=== PATIENT | female | born 1995 | race American Indian/Alaskan Native ===

== ENCOUNTER 2021-08-13 23:40 | Emergency (ER) | payer BC ==
[2021-08-13 23:50] VITALS: BP 123/73
--- NOTE | 2021-08-14 00:08 | Emergency Department Report ---
ED General Adult HPI - General Chief complaint: Urogenital-Female Stated complaint: POSS MISCARRIGE Time Seen by Provider: 08/13/21 23:54 Source: patient Mode of arrival: Ambulatory Limitations: No Limitations - History of Present Illness Initial comments: 25-year-old female patient presents to the emergency department with complaints of progressively worsening lower abdominal pain and vaginal bleeding. Patient states she was seen in the emergency department for the same symptoms 2 days ago. Serum hCG was measured and transvaginal ultrasound confirmed intrauterine , 7 weeks gestation, normal heart tones she was discharged home to follow-up with wholesale account manager this week.. Tonight, her pain and bleeding worsened, prompting her to return to the emergency department for repeat assessment. This is patient's first . Denies fever, chills, dizziness, lightheadedness, syncope. Denies all other complaints at this time. - Related Data Previous Rx's Medication Instructions Recorded Last Taken Type Ondansetron [Zofran Odt] 4 mg PO Q4H #20 tab.rapdis 08/14/21 Unknown Rx oxyCODONE /ACETAMINOPHEN [Percocet 1 tab PO Q4HR #15 tab 08/14/21 Unknown Rx 5/325] Allergies Allergy/AdvReac Type Severity Reaction Status Date / Time No Known Allergies Allergy Verified 08/12/21 12:24 ED Review of Systems ROS: Stated complaint: POSS MISCARRIGE Other details as noted in HPI Other: GENERAL: Negative for fever, chills, weight change, anorexia, fatigue. ENT: Negative for ear pain, difficulty hearing, sore throat, nasal congestion, epistaxis. CARDIOVASCULAR: Negative for chest pain, palpitations, lower extremity swelling. PULMONARY: Negative for cough, dyspnea, wheezing, orthopnea, cyanosis. GASTROINTESTINAL: Positive for abdominal pain. GENITOURINARY: Positive for vaginal bleeding. MUSCULOSKELETAL: Negative for joint pain, joint swelling, myalgias, back pain, neck pain. NEUROLOGICAL: Negative for headache, seizure, syncope, paresthesias, weakness. INTEGUMENTARY: Negative for erythema, rash, diaphoresis, laceration, ecchymosis. HEMATOLOGICAL: Negative for hemoptysis, hematemesis, hematochezia, hematuria. PSYCHIATRIC: Negative for hallucinations, suicidal ideation, homicidal ideation, anxiety, depression. ED Past Medical Hx - Past Medical History Previous Medical History?: No - Surgical History Past Surgical History?: No - Social History Smoking Status: Never Smoker Substance Use Type: None - Medications Home Medications: Home Medications Medication Instructions Recorded Confirmed Last Taken Type Ondansetron [Zofran Odt] 4 mg PO Q4H #20 tab.rapdis 08/14/21 Unknown Rx oxyCODONE /ACETAMINOPHEN [Percocet 1 tab PO Q4HR #15 tab 08/14/21 Unknown Rx 5/325] ED Physical Exam - General Limitations: No Limitations - Other Other exam information: General: Awake and alert. No acute distress. Head: Atraumatic, normocephalic. Eyes: EOMI. Pupils are equal and round. Normal sclera and conjunctiva. ENT: Oral mucosa is moist. Normal pharyngeal exam. Neck: Supple. No lymphadenopathy. Pulmonary: No respiratory distress. Clear to auscultation bilaterally. Cardiac: Regular rate and rhythm. Pulses are palpable and equal bilaterally. No lower extremity cyanosis or edema. Pelvic: Female warehouse sorter (BROOK Dexter) present. Normal external inspection. Cervical os is closed. Multiple blood clots removed manually and with forceps. Skin: Warm and dry. No rashes. Abdomen: Soft, non-tender, non-protuberant. No guarding, rigidity, or rebound. Bowel sounds are normal. No organomegaly or masses noted. Back: Normal alignment. No CVA tenderness. Extremities: Symmetrical. Full range of motion intact. Neurological: Alert and oriented, appropriately interactive, no focal deficits. Psych: Cooperative. Appropriate mood and affect. Speech is evenly metered. Thoughts are logically construed. ED Course Vital Signs 08/13/21 23:45 Temperature 98.3 F Pulse Rate 85 Respiratory 19 Rate Blood Pressure 123/73 O2 Sat by Pulse 98 Oximetry ED Medical Decision Making - Lab Data Result diagrams: 08/14/21 00:06 - Radiology Data [facility] [address] [place] [address] Ultrasound Report Signed Patient: EDNA NEWTON MR#: [id number] : 1995 Acct:[id number] Age/Sex: 25 / F ADM Date: 08/13/21 Loc: ED Attending Dr: Ordering Physician: BHARTI GARSIA Date of Service: 08/14/21 Procedure(s): US OB limited Accession Number(s): [id number] cc: BHARTI GARSIA ULTRASOUND OBSTETRIC INDICATION / CLINICAL INFORMATION: abd pain and bleeding. Clinical Gestational Age (GA) in weeks, days: 7, 4 TECHNIQUE: Transabdominal. COMPARISON: 08/12/2021 FINDINGS/IMPRESSION: A gestational sac is seen within the uterus. There is a yolk sac and a pole noted within the gestational sac. However, exam is limited secondary to overlying bowel gas and a heart beat is not appreciated. If clinically feasible a transvaginal ultrasound can be per formed for better evaluation; however, if patient is actively aborting then additional imaging may not be beneficial. Signer Name: Humza Mccall DO Signed: 08/14/2021 3:00 AM Workstation Name: [id number] Transcribed By: BONG Dictated By: HUMZA MCCALL DO Electronically Authenticated By: HUMZA MCCLAL DO Signed Date/Time: 08/14/21 030 DD/ 1 TD/TT: - Medical Decision Making Differential diagnosis including but not limited to: spontaneous , implantation bleed, heterotopic , uterine rupture, ovarian torsion On reevaluation, patient remains stable. Vital signs are within normal limits. Hemoglobin is stable as compared with labs yesterday. Serum hCG has decreased by approximately 2000. No heartbeat detected on ultrasound. Presentation consistent with inevitable . No clinical evidence to suggest sepsis or hemorrhagic shock warranting further diagnostic work-up or treatment on an emergent basis at this time. Patient will be discharged home with appropriate analgesics as well as a copy of her results and instructed to follow-up with wholesale account manager this week. Patient expressed understanding and is agreeable to plan of care. Strict return precautions provided. Case discussed with Dr. Galeana, attending emergency physician, who agrees with diagnostic work-up/plan of care. Repeat exam is unremarkable and benign. History, exam, diagnostic testing, and current condition do not suggest worrisome pathology to warrant further testing, continued ED treatment, admission, or surgical evaluation at this point. Given the low probability of a significant medical illness, it would be more likely to result in harm than benefit to perform further testing at this stage. Discussed findings, presumptive diagnosis, need for follow-up and specific signs/symptoms that should prompt immediate return to the emergency department. Instructions were explained in detail to the patient in addition to giving written discharge information. Patient expressed understanding and was given the opportunity to ask questions, all of which were satisfactorily answered prior to discharge home. Critical care attestation.: If time is entered above; I have spent that time in minutes in the direct care of this critically ill patient, excluding procedure time. ED Disposition Clinical Impression: Inevitable Disposition: 01 HOME / SELF CARE / HOMELESS Is pt being admited?: No Does the pt Need Aspirin: No Condition: Stable Instructions: Managing Loss Additional Instructions: Take Percocet with food as directed for pain. Do not drive or operate machinery while taking this medication. Do not consume alcohol while taking this medication. Take Zofran as needed for nausea/vomiting. Rest. Drink plenty of fluids. Follow-up with your wholesale account manager this week. Call today to schedule an appointment. Bring a copy of today's results with you to your follow-up appointment. Return to the emergency department immediately for new or worsening symptoms. Specifically, return to the emergency department immediately for chest pain, shortness of breath, dizziness, lightheadedness, loss of consciousness, worsening pain, fever, or any other concerns. Prescriptions: oxyCODONE /ACETAMINOPHEN [Percocet 5/325] 1 tab PO Q4HR #15 tab Ondansetron [Zofran Odt] 4 mg PO Q4H #20 tab.gale Referrals: LAUREN MARTIN JR, MD [Staff Physician] - 3-5 Days Forms: Work/School Release Form(ED) Time of Disposition: 03:46
[2021-08-14] MEDS ORDERED: ACETAMINOPHEN 500 MG TAB PO ONE (00:16)
[2021-08-14 00:46] LABS: Basophils % (Auto) 0.5 % (0.0-1.8); Eosinophils # (Auto) 0.1 K/mm3 (0.0-0.4); Eosinophils % (Auto) 1.9 % (0.0-4.3); Hematocrit 34.4 % (30.3-42.9); Hemoglobin 11.1 gm/dl (10.1-14.3); Lymphocytes # (Auto) 3.1 K/mm3 (1.2-5.4); Lymphocytes % (Auto) 43.1 % (13.4-35.0); Mean Corpuscular HGB Conc 32 % (30-34); Monocytes # (Auto) 0.5 K/mm3 (0.0-0.8); Monocytes % (Auto) 7.3 % (0.0-7.3); Platelet Count 183 K/mm3 (140-440); Red Blood Count 4.93 M/mm3 (3.65-5.03); Red Cell Distribution Width 15.3 % (13.2-15.2)
[2021-08-14 00:52] LABS: Mean Corpuscular Volume 70 fl (79-97)
[2021-08-14] MEDS ORDERED: ACETAMINOPHEN 500 MG TAB ONE (02:55)
--- NOTE | 2021-08-14 03:05 | Ultrasound Report ---
ULTRASOUND OBSTETRIC INDICATION / CLINICAL INFORMATION: abd pain and bleeding. Clinical Gestational Age (GA) in weeks, days: 7, 4 TECHNIQUE: Transabdominal. COMPARISON: 08/12/2021 FINDINGS/IMPRESSION: A gestational sac is seen within the uterus. There is a yolk sac and a pole noted within the ge stational sac. However, exam is limited secondary to overlying bowel gas and a heart beat is no t appreciated. If clinically feasible a transvaginal ultrasound can be performed for better evaluatio n; however, if patient is actively aborting then additional imaging may not be beneficial. Signer Name: Humza Yap DO Signed: 08/14/2021 3:00 AM Workstation Name: [id number]
== END 2021-08-14 04:44 | disposition home or self-care (01) ==
LOC: ED 23:40
DX: O03.4 Incomplete spontaneous abortion without complication (principal)
CPT/HCPCS: 36415; 76815; 84702; 85025; 86850; 86900; 86901; 99284